=== PATIENT | female | born 1930 | race Caucasian/White ===

== ENCOUNTER → 2016-12-26 | Outpatient (CLI) | payer MEDICARE, BC ==
[~2016-12-26] MED LIST: ALTACE PO; AMLODIPINE BESYL5 MG PO; ANACIN TABLET1 TAB PO; ANUCORT-HC25 MG/SUPP PR; ARTHROTEC 751 TAB.EC PO; ASPIRIN PO; BUSPAR PO; CALCIUM 500 + D1 TAB PO; CARAFATE PO; CRESTOR PO; D-3 PO; DITROPAN PO; DOCUSATE SODIU100 MG PO; FISH OIL 1,0001 CAP PO; HYDROCORT; LASIX PO; LOPRESSOR PO; LOSARTAN POTASS50 MG PO; MINIPRESS PO; MULTI-VITAMIN1 TAB PO; NORVASC PO; PROTONIX PO; RESTASIS32 EA OP; TIMOPTIC-XE5 ML OP; VYTORIN PO; XALATAN OP; ZOCOR10 MG PO
--- NOTE | ~2016-12-26 | US5 ---
[facility] A Service of [facility] RADIOLOGY TEXT RESULTS PATIENT: EMILEE GONZALES LOCATION: [facility] : 32 UNIT #: [id number] AGE: [address]: Saravanan Traore MD SEX: F ORDER DR: [id number] [facility] [address] [place], [place] [address] [id number] O MR#: [id number] Acc #: [id number] NAME: EMILEE GONZALES : 1930 SEX: F STUDY DATE/TIME: 12/26/2016 10:26 UNIT: [facility] ROOM: STUDY DESCRIPTION: US Abdominal Complete Attending Physician: Saravanan Traore M.D. Ordering Physician: Saravanan Traore M.D. Primary Care Physician: Marimar Ford M.D. MEDICAL IMAGING REPORT This report is preliminary unless electronic signature is present EXAM Complete abdominal ultrasound 12/26/2016 HISTORY 86-year-old female with abnormal elevated liver function test. The patient states pain and burning sensation for [address] abdomen and pelvis about contrast 02/12/2016. FINDINGS Pancreas is partially obscured by bowel gas. No focal pancreatic abnormality is seen. Main portal vein is patent. Liver size is normal measuring up to 13.4 meters in length. No focal liver lesions identified and the liver demonstrates normal echotexture. Gallbladder is free of shadowing stone, sludge, wall thickening, or pericholecystic fluid. Right kidney measures 9.1 cm in length. A cyst is seen in the right lower renal pole measuring approximately 2 cm. Common bile duct caliber is normal, 3 mm. No intraarticular ductal dilation is evident. Abdominal aorta is of normal caliber measuring up to 2.21 cm proximally with normal color flow. Mid- and distal abdominal aorta are obscured by bowel gas. Left kidney measures 9.4 cm in length without focal cortical lesion, shadowing stone or hydronephrosis. Spleen size is normal, 9 cm in length. No ascites. IMPRESSION 1. Right renal cyst. Otherwise, normal complete abdominal ultrasound. Dictated by... Steph Cadena M.D. [facility] A Service of [facility] RADIOLOGY TEXT RESULTS PATIENT: EMILEE GONZALES LOCATION: [facility] #: [id number] : 32 UNIT #: [id number] AGE: [address]: Saravanan Traore MD SEX: F ORDER DR: THIS IS AN ELECTRONICALLY VERIFIED REPORT Steph Cadena M.D. at 12/28/2016 7:02 PM LENA/bonilla TD: 12/26/2016 19:31 JOB #: [id number] MEDICAL IMAGING REPORT COPY
--- NOTE | ~2016-12-26 | CR63 ---
[facility] A Service of [facility] & [facility] RADIOLOGY TEXT RESULTS PATIENT: EMILEE GONZALES LOCATION: [facility] : 32 UNIT #: [id number] AGE: [address]: Saravanan Traore MD SEX: F ORDER DR: [id number] [facility] [address] [place], [place] [address] [id number] O MR#: [id number] Acc #: [id number] NAME: EMILEE GONZALES : 1930 SEX: F STUDY DATE/TIME: 12/26/2016 11:06 UNIT: [facility] ROOM: STUDY DESCRIPTION: CR Chest 2 View Attending Physician: Saravanan Traore M.D. Ordering Physician: Saravanan Traore M.D. Primary Care Physician: Marimar Ford M.D. MEDICAL IMAGING REPORT This report is preliminary unless electronic signature is present EXAM Chest, PA and lateral, 12/26/2016 HISTORY Congestive heart failure. Chronic chest pain for 2 weeks, worsening today. FINDINGS The cardiac and mediastinal structures are stable compared with 10/04/2014. The lungs are clear. There are no pleural effusions. IMPRESSION No active pulmonary disease. No change compared with 10/04/2014. Dictated by... Shay Chris M.D. THIS IS AN ELECTRONICALLY VERIFIED REPORT Shay Chris M.D. at 12/29/2016 8:14 AM KRT/pcl TD: 12/26/2016 19:24 JOB #: [id number] MEDICAL IMAGING REPORT COPY
== END | disposition home or self-care (01) ==
LOC: CWCC 09:37
DX: I50.9 Heart failure, unspecified (principal); R10.13 Epigastric pain; N28.1 Cyst of kidney, acquired
CPT/HCPCS: 71020; 76700

== ENCOUNTER → 2017-02-05 | Outpatient (CLI) | payer MEDICARE, BC ==
--- NOTE | ~2017-02-05 | US98 ---
[facility] A Service of [facility] RADIOLOGY TEXT RESULTS PATIENT: EMILEE GONZALES LOCATION: [facility] : 32 UNIT #: [id number] AGE: [address]: Marimar Ford MD SEX: F ORDER DR: [id number] [facility] [address] [place], [place] [address] [id number] O MR#: [id number] Acc #: [id number] NAME: EMILEE GONZALES : 1930 SEX: F STUDY DATE/TIME: 02/05/2017 12:42 UNIT: [facility] ROOM: STUDY DESCRIPTION: US Pelvic Non-OB Complete Attending Physician: Marimar Ford M.D. Referring Physician: Marimar Ford M.D. Ordering Physician: Marimar Ford M.D. Primary Care Physician: Marimar Ford M.D. MEDICAL IMAGING REPORT This report is preliminary unless electronic signature is present EXAM Ultrasound pelvis 02/05/2017 HISTORY 87-year-old female complaining of 3-month history of right lower quadrant and flank pain. TECHNIQUE Pelvic ultrasound examination was performed transabdominally and endovaginally. Transabdominal imaging is limited by an empty urinary bladder and pelvic bowel gas. The patient had difficulty tolerating endovaginal imaging. FINDINGS The uterus is small, measuring 5.0 x 2.3 x 3.2 cm (uterine volume 20 mL). No uterine mass is demonstrated. Endometrial atrophy is noted with total endometrial thickness of 3 mm. The ovaries are not identified and are likely atrophic. Ovaries are not clearly visible on the CT study of 02/12/2016. No pelvic mass or free pelvic fluid. IMPRESSION 1. Technically limited study as noted above. 2. Small uterus with endometrial atrophy. No uterine mass or additional abnormality. 3. The ovaries are not visualized. No visible pelvic mass or free pelvic fluid. Dictated by... Matteo Grullon M.D. THIS IS AN ELECTRONICALLY VERIFIED REPORT [facility] A Service of [facility] RADIOLOGY TEXT RESULTS PATIENT: EMILEE GONZALES LOCATION: [facility] #: [id number] : 32 UNIT #: [id number] AGE: [address]: Marimar Ford MD SEX: F ORDER DR: Matteo Grullon M.D. at 02/10/2017 2:04 PM RGW/jen TD: 02/05/2017 18:05 JOB #: [id number] MEDICAL IMAGING REPORT Page 1 of 1 COPY
--- NOTE | ~2017-02-05 | BD1 ---
[facility] A Service of [facility] & [facility] RADIOLOGY TEXT RESULTS PATIENT: EMILEE GONZALES LOCATION: [facility] : 32 UNIT #: [id number] AGE: [address]: Marimar Ford MD SEX: F ORDER DR: [id number] [facility] [address] [place], [place] [address] [id number] O MR#: [id number] Acc #: [id number] NAME: EMILEE GONZALES : 1930 SEX: F STUDY DATE/TIME: 02/05/2017 13:14 UNIT: [facility] ROOM: STUDY DESCRIPTION: BD Dexa Bone Dens 1+ Site Attending Physician: Marimar Ford M.D. Referring Physician: aMrimar Ford M.D. Ordering Physician: Marimar Ford M.D. Primary Care Physician: Marimar Ford M.D. MEDICAL IMAGING REPORT This report is preliminary unless electronic signature is present EXAM DXA scan 02/05/2017 HISTORY Status post menopause with no hormone replacement therapy. Osteopenia. Smoking history for 10 years. FINDINGS Bone mineral density in the lumbar spine from L1-L4 was 0.802 g/cm2 which is 2.2 standard deviations below the mean when compared to the young adult reference population which is characteristic of osteopenia. Compared with 03/03/2014 there has been a decrease in bone mineral density in the lumbar spine of 4.3%. Bone mineral density in the left femoral neck was 0.559 g/cm2 which is 2.6 standard deviations below the mean when compared to the young adult reference population which is characteristic of osteoporosis. Compared with 03/03/2014 there has been an increase in bone mineral density in the left hip of 0.7%. IMPRESSION Bone mineral density in the lumbar spine characteristic of osteopenia and within the left hip characteristic of osteoporosis. Compared with 03/03/2014 there has been a decrease in bone mineral density in the lumbar spine and an increase in bone mineral density in the left hip. Dictated by... Shay Chris M.D. THIS IS AN ELECTRONICALLY VERIFIED REPORT Shay Chris M.D. at 02/06/2017 9:34 AM BRANDON/genie TD: 02/05/2017 15:37 JOB #: [id number] [facility] A Service of [facility] & [facility] RADIOLOGY TEXT RESULTS PATIENT: EMILEE GONZALES LOCATION: [facility] #: [id number] : 32 UNIT #: [id number] AGE: [address]: Marimar Ford MD SEX: F ORDER DR: MEDICAL IMAGING REPORT Page 1 of 1 COPY
== END | disposition home or self-care (01) ==
LOC: CWCC 12:18
DX: M81.0 Age-related osteoporosis without current pathological fracture (principal); M85.88 Other specified disorders of bone density and structure, other site; N85.8 Other specified noninflammatory disorders of uterus
CPT/HCPCS: 76830; 76856; 77080

== ENCOUNTER → 2017-02-09 | Outpatient (CLI) | payer MEDICARE, BC ==
--- NOTE | ~2017-02-09 | CR63 ---
[facility] A Service of [facility] & [facility] RADIOLOGY TEXT RESULTS PATIENT: EMILEE GONZALES LOCATION: [facility] : 32 UNIT #: [id number] AGE: [address]: BRIGID DOE SEX: F ORDER DR: [id number] [facility] [address] [place], [place] [address] [id number] O MR#: [id number] Acc #: [id number] NAME: EMILEE GONZALES : 1930 SEX: F STUDY DATE/TIME: 02/09/2017 16:12 UNIT: [facility] ROOM: STUDY DESCRIPTION: CR Chest 2 View Attending Physician: Tk Wilde Referring Physician: Tk Wilde Ordering Physician: Tk Wilde Primary Care Physician: Marimar Ford M.D. MEDICAL IMAGING REPORT This report is preliminary unless electronic signature is present EXAM Chest x-ray HISTORY Productive cough for the past 4 days. COMPARISON 10/04/2014 TECHNIQUE 2 views of the chest were obtained. FINDINGS Mild cardiomegaly is noted. The aorta is tortuous. Both lungs are clear with normal vascular markings. No pleural fluid is seen. No change is noted since the previous exam. IMPRESSION No active disease. Lungs clear. Dictated by... Shawn Rowe M.D. THIS IS AN ELECTRONICALLY VERIFIED REPORT Shawn Rowe M.D. at 02/10/2017 3:48 PM PHUONG/damon TD: 02/10/2017 08:32 JOB #: [id number] MEDICAL IMAGING REPORT Page 1 of 1 COPY
== END | disposition home or self-care (01) ==
LOC: CRAD 15:12
DX: R05 Cough (principal)
CPT/HCPCS: 71020

== ENCOUNTER → 2017-02-12 | Day surgery (SDC) | payer MEDICARE, BC ==
--- NOTE | ~2017-02-12 | OR ---
Unit #: [id number] #: [id number] Patient: EMILEE GONZALES [id number] [address] [address] [id number] O MR#: [id number] NAME: EMILEE GONZALES ROOM: Date of Procedure: 02/12/2017 Admission Date: 02/12/2017 Surgeon: Wallace Julio M.D. : 1930 Attending Physician: Wallace Julio M.D. Primary Care Physician: Marimar Ford M.D. OPERATIVE REPORT PROCEDURE PERFORMED Esophagogastroduodenoscopy with biopsy. INDICATIONS FOR PROCEDURE The patient with persistent nausea, vomiting, and epigastric pain, on PPIs, undergoing evaluation with upper endoscopy. MEDICATIONS Monitored anesthesia. POSTOPERATIVE FINDINGS 1. Normal esophagus. 2. Mild gastritis. Biopsies taken. 3. Normal duodenum and distal duodenum. PLAN Follow up on the labs. Further recommendations to follow. DESCRIPTION OF PROCEDURE The patient was explained of the procedure, risks, and benefits along with risks and benefits of anesthesia. She was brought to the endoscopy room. Propofol anesthesia was given. Bite block was placed. The scope was passed down the mouth into the esophagus, stomach, duodenum, and distal duodenum. Findings as described. Biopsies taken. Gently, the scope was pulled out. She tolerated it well. Dictated by... Doreen Basilio/bea TD: 02/12/2017 23:13 JOB #: [id number] Unit #: [id number] #: [id number] Patient: EMILEE GONZALES OPERATIVE REPORT Page 1 of 1 X Wallace Julio MD X PROCEDURE OPERATIVE NOTE
[2017-02-12 09:37] LABS: BASOPHIL# 0.1 X10e3 (0-0.3); BASOPHIL% 1.4 % (0-2.5); DIFF IND NO; EOSINOPHIL# 0.2 X10e3 (0-0.7); EOSINOPHIL% 4.6 % (0.0-7.0); HEMATOCRIT 38.4 % (35.0-45.0); HEMOGLOBIN 12.5 gm/dL (12.0-16.0); LYMPHOCYTE# 1.5 X10e3 (1.0-3.5); LYMPHOCYTE% 32.2 % (17.0-45.0); MEAN CELL VOLUME 92.3 FL (83-96); MEAN CORPUSCULAR HEMOGLOBIN 30.2 PG (28-34); MEAN CORPUSCULAR HGB CONC 32.7 g/dL (30-36); MEAN PLATELET VOLUME 7.6 FL (6.5-11.5); MONOCYTE# 0.3 X10e3 (0-1.0); MONOCYTE% 6.3 % (3.0-12.0); NEUTROPHIL# 2.7 X10e3 (1.5-7.1); NEUTROPHIL% 55.5 % (40-75); PLATELET COUNT 248 X10e3 (140-420); RED BLOOD COUNT 4.16 X10e (3.90-5.30); WHITE BLOOD COUNT 4.8 X10e3 (4.0-10.5)
[2017-02-12 10:05] LABS: ALBUMIN SERUM 3.5 g/dL (3.5-5.0); BILIRUBIN,TOTAL 0.9 mg/dL (0.2-2.0); BUN/CREATININE RATIO 21.42; CALCIUM SERUM 8.8 mg/dL (8.4-10.2); CREATININE SERUM 0.7 mg/dL (0.6-1.4); POTASSIUM 3.6 mmol/L (3.5-5.1); PROTEIN TOTAL SERUM 6.3 g/dL (6.0-8.3)
== END | disposition home or self-care (01) ==
LOC: COPS 07:17
PROVIDERS: Internal Medicine
DX: K29.50 Unspecified chronic gastritis without bleeding (principal); K21.9 Gastro-esophageal reflux disease without esophagitis; R13.10 Dysphagia, unspecified; I10 Essential (primary) hypertension; Z88.0 Allergy status to penicillin; M19.90 Unspecified osteoarthritis, unspecified site; F17.200 Nicotine dependence, unspecified, uncomplicated
CPT/HCPCS: 80053; 85025; 88305; 88312

== ENCOUNTER → 2017-02-19 | Day surgery (SDC) | payer MEDICARE, BC ==
--- NOTE | ~2017-02-19 | OR ---
Unit #: [id number] #: [id number] Patient: EMILEE GONZALES [id number] [facility] [address] [place], [place] [address] [id number] O MR#: [id number] NAME: EMILEE GONZALES ROOM: Date of Procedure: 02/19/2017 Admission Date: 02/19/2017 Surgeon: Shawn Cotto M.D. : 1930 Attending Physician: Shawn Cotto M.D. Primary Care Physician: Marimar Ford M.D. OPERATIVE REPORT PREOPERATIVE DIAGNOSIS Ulcerated skin lesion of the left labia majora. POSTOPERATIVE DIAGNOSIS Ulcerated skin lesion of the left labia majora. PROCEDURE PERFORMED Excisional biopsy of ulcerated left labial mass measuring 1.2 x 1.3 cm. ANESTHESIA General endotracheal anesthesia. INDICATIONS FOR PROCEDURE An 87-year-old female presented to the office with a painful ulcerated lesion of the left labia. There was no purulent drainage, but there was some erythema, but the lesion was ulcerated with heaped-up edges. It was too exquisitely tender to attempt to do a biopsy or removal in the office. DESCRIPTION OF PROCEDURE The patient was admitted to [facility], positively identified and transported to the operating room, and after induction of general endotracheal anesthesia, she was placed in a lithotomy position. She received 600 mg of clindamycin and then she was prepped and draped in the usual sterile fashion. 1% lidocaine plain local was used and a field block was created. Then, a wedge excision to grossly negative margins was performed and lesion was removed en bloc. It was sent to the laboratory for evaluation. The area was irrigated and hemostasis obtained. More local was infiltrated into the base of the wound and then 3-0 Vicryl interrupted sutures were used to reapproximate the subcutaneous tissues and dermis. The skin edges were approximated using 4-0 Monocryl running suture. Dermabond skin adhesive was placed as a waterproof occlusive dressing. Sponges and needle counts were correct x3. The patient tolerated the procedure well and was transported to recovery in stable condition. Findings and postoperative instructions were discussed with her . Dictated by... Shawn Cotto M.D. GIANA/bea Unit #: [id number] #: [id number] Patient: EMILEE GONZALES Saira TD: 02/20/2017 06:55 JOB #: [id number] OPERATIVE REPORT Page 1 of 1 X Shawn Cotto MD PROCEDURE OPERATIVE NOTE
--- NOTE | ~2017-02-19 | EKG ---
PATIENT: EMILEE GONZALES UNIT #: [id number] Ventricular Rate: 62 BPM Atrial Rate: 62 BPM P-R Interval: 216 ms QRS Duration: 78 ms Q-T Interval: 446 ms QTC Calculation(Bezet): 452 ms P [place]: 16 degrees Calculated R [place]: 21 degrees Calculated T [place]: 48 degrees Diagnosis Line: Sinus rhythm with 1st degree A-V block with PVC's Diagnosis Line: Nonspecific ST and T wave abnormality Diagnosis Line: Abnormal ECG Diagnosis Line: When compared with ECG of 24-NOV-2012 09:37, Diagnosis Line: No significant change was found Diagnosis Line: Confirmed by YESIKA NINO MD ([id number]) on Diagnosis Line: 02/20/2017 11:04:17 PM INTERPRETING MD: KEITH
[2017-02-19 11:55] LABS: BASOPHIL# 0.1 X10e3 (0-0.3); BASOPHIL% 1.2 % (0-2.5); EOSINOPHIL# 0.3 X10e3 (0-0.7); EOSINOPHIL% 5.5 % (0.0-7.0); HEMATOCRIT 39.7 % (35.0-45.0); HEMOGLOBIN 13.1 gm/dL (12.0-16.0); LYMPHOCYTE# 1.7 X10e3 (1.0-3.5); LYMPHOCYTE% 30.5 % (17.0-45.0); MEAN CELL VOLUME 92.4 FL (83-96); MEAN CORPUSCULAR HEMOGLOBIN 30.5 PG (28-34); MEAN PLATELET VOLUME 7.9 FL (6.5-11.5); MONOCYTE# 0.4 X10e3 (0-1.0); MONOCYTE% 7.8 % (3.0-12.0); NEUTROPHIL# 3.1 X10e3 (1.5-7.1); PLATELET COUNT 256 X10e3 (140-420); RED CELL DISTRIBUTION WIDTH 14.2 % (11.0-15.5); WHITE BLOOD COUNT 5.7 X10e3 (4.0-10.5)
[2017-02-19 12:00] LABS: DIFF IND NO
[2017-02-19 12:20] LABS: BUN/CREATININE RATIO 21.42; CALCIUM SERUM 8.8 mg/dL (8.4-10.2); CREATININE SERUM 0.7 mg/dL (0.6-1.4); POTASSIUM 3.6 mmol/L (3.5-5.1)
== END | disposition home or self-care (01) ==
LOC: CSUR 10:13
PROVIDERS: Specialist
DX: N76.5 Ulceration of vagina (principal); N76.0 Acute vaginitis; I11.0 Hypertensive heart disease with heart failure; I50.9 Heart failure, unspecified; E78.5 Hyperlipidemia, unspecified; K21.9 Gastro-esophageal reflux disease without esophagitis; M19.90 Unspecified osteoarthritis, unspecified site; E78.00 Pure hypercholesterolemia, unspecified; I42.8 Other cardiomyopathies; Z88.0 Allergy status to penicillin; Z79.82 Long term (current) use of aspirin; Z79.899 Other long term (current) drug therapy; Z98.49 Cataract extraction status, unspecified eye; Z90.89 Acquired absence of other organs; Z98.890 Other specified postprocedural states; Z87.440 Personal history of urinary (tract) infections; Z87.891 Personal history of nicotine dependence
CPT/HCPCS: 80048; 85025; 88304; 93005; J3010